=== PATIENT | male | born 1965 | race Caucasian/White ===

== ENCOUNTER 2019-03-31 09:44 | Emergency (ER) | payer SELFPAY ==
[~2019-03-31] VITALS: Ht 190.5 cm; Wt 117.9 kg
[~2019-03-31 09:44] MED LIST: IBUP800 PO; PENVK250 PO
[2019-03-31] MEDS ORDERED: CRUTCH4 XX (11:55)
== END 2019-03-31 12:00 | disposition home or self-care (01) ==
LOC: ER 09:44
DX: S82.892A Other fracture of left lower leg, initial encounter for closed fracture (principal); S86.012A Strain of left Achilles tendon, initial encounter; S90.32XA Contusion of left foot, initial encounter; Z88.5 Allergy status to narcotic agent; X50.1XXA Overexertion from prolonged static or awkward postures, initial encounter
CPT/HCPCS: 29505; 73610; 76882; 99284-25